=== PATIENT | female | born 1950 | race Caucasian/White ===

== ENCOUNTER → 2016-12-25 | Outpatient (CLI) | payer MEDICARE ==
--- NOTE | 2016-12-30 10:31 | MM ---
Reason for exam: screening (asymptomatic). History: Patient is postmenopausal. Physical Findings: A clinical breast exam by your physician is recommended on an annual basis and results should be correlated with mammographic findings. MG 3D Screening Mammo W/Cad Bilateral CC and MLO view(s) were taken. No prior studies available for comparison. There are scattered fibroglandular densities. Finding: There are typically benign diffuse calcifications in both breasts. ASSESSMENT: Benign, BI-RAD 2 RECOMMENDATION: Routine screening mammogram of both breasts in 1 year.
== END | disposition home or self-care (01) ==
LOC: RADMAMWWP 13:45
PROVIDERS: ATTEND Family Medicine
DX: Z12.31 Encounter for screening mammogram for malignant neoplasm of breast (principal)
CPT/HCPCS: 77063; G0202

== ENCOUNTER → 2017-02-10 | Outpatient (CLI) | payer MEDICARE ==
--- NOTE | 2017-02-10 16:17 | BD ---
EXAMINATION TYPE: MG DEXA axial skeleton. DATE OF EXAM: 02/10/2017 COMPARISON: 2005 CLINICAL HISTORY: 67-year-old female screening for osteoporosis Height: 5'1 Weight: 137 FRAX RISK QUESTIONS: Alcohol (3 or more units per day): no Family History (Parent hip fracture): yes Glucocorticoids (More than 3mos): no (Ex: prednisone, prednisolone, methylprednisolone, dexamethasone, and hydrocortisone). History of Fracture in Adulthood: yes Secondary Osteoporosis: 1. Type 1 Diabetes: no 2. Hyperthyroidism: no 3. Menopause before 45: no 4. Malnutrition: no 5. Chronic liver disease: no Rheumatoid Arthritis: no Current Tobacco Use: no RISK FACTORS HISTORY OF: Family History of Osteoporosis: Diet low in dairy products/other sources of calcium: Postmenopausal woman: MEDICATIONS: Additional Medications: Neurontin, Additional History: EXAM MEASUREMENTS: Bone mineral densitometry was performed using the Bit9 System. Bone mineral density as measured about the Lumbar spine is: ----- L1-L4(G/cm2): 0.924 T Score Values are as follows: ----- L2: -1.5 ----- L3: -2.0 ----- L4: -2.6 ----- L1-L4: -2.1 Bone mineral density has: Decreased -8.2% since study of: 12/16/2005 Bone mineral density about the R hip (g/cm2): 0.669 Bone mineral density about the L hip (g/cm2): 0.673 T Score values are as follows: -----R Neck: -2.7 -----L Neck: -2.6 -----R Total: -1.9 -----L Total: -1.8 Bone mineral density has: Decreased -16.5% since study of: 12/16/2005 IMPRESSION: Osteoporosis (T Score less than -2.5). There is increased fracture risk and therapy is usually indicated based on age. Re-Screen 1-2 years. NOTE: T-SCORE=SD OF THE YOUNG ADULT MEAN.
== END | disposition home or self-care (01) ==
LOC: RADBDWWP 13:18
PROVIDERS: ATTEND Family Medicine
DX: Z13.820 Encounter for screening for osteoporosis (principal); M81.0 Age-related osteoporosis without current pathological fracture
CPT/HCPCS: 77080

== ENCOUNTER 2019-01-13 20:35 | Inpatient (IN) | payer MEDICARE ==
[2019-01-13] MEDS ORDERED: ACETAMINOPHEN TAB 500 MG TAB PO STA (20:57)
[2019-01-13] MEDS: SODIUM CHLORIDE 0.9% 500 ML 500 ML IV SCH (21:24)
[2019-01-13 21:32] LABS: Anisocytosis Slight; Basophils # (A) 0.1 k/uL (0-0.2); Basophils % (A) 0 %; Eosinophils % (A) 0 %; HCT 22.8 % (34.0-46.0); Hypochromasia Marked; Lymphocytes # (A) 1.6 k/uL (1.0-4.8); Lymphocytes % (A) 9 %; MCH 26.4 pg (25.0-35.0); MCV 91.2 fL (80.0-100.0); Mean Platelet Volume 7.3; Monocytes # (A) 0.4 k/uL (0-1.0); Monocytes % (A) 2 %; Neutrophils # (A) 15.2 k/uL (1.3-7.7); Neutrophils % (A) 88 %; Platelet Count 331 k/uL (150-450); RDW 19.5 % (11.5-15.5); WBC 17.4 k/uL (3.8-10.6)
--- NOTE | 2019-01-13 21:34 | ED ---
General Adult HPI - General Chief complaint: Fever Stated complaint: Sepsis Time Seen by Provider: 01/13/19 20:57 Source: patient, EMS Mode of arrival: EMS Limitations: no limitations - History of Present Illness Initial comments: Carli is a 68-year-old female with past medical history of alcohol abuse who presents the emergency department today via EMS for evaluation of possible sepsis. Patient's family members called EMS because the patient has been less active than usual, she's been staying in bed, today they noted that she appeared to be pale, yellow in color. Patient reports she's feeling kind of crummy but denies any specific complaints. She states that she lives alone she cares for herself and that she's been at her normal activity level. EMS reports that they found the patient in bed, patient was noted to be febrile, tachycardic, had normal blood pressure, was noted to have malodorous wounds of the left lower extremity. Because of this she met sepsis protocol, IV access was obtained she was given a liter fluids in route to the hospital. EMS reports that upon their arrival the patient was sleepy but woke to voice, patient r eported she believes the year is 2001, she believed Kj was the president, she did not know why EMS was called or who called them. Patient's mental status was improving upon arrival to the emergency department. - Related Data Home Medications Medication Instructions Recorded Confirmed Citalopram Hydrobromide [CeleXA] 20 mg PO DAILY 01/09/16 01/09/16 Multivitamins, Thera [Multivitamin 1 tab PO DAILY 01/09/16 01/09/16 (formulary)] Previous Rx's Medication Instructions Recorded Folic Acid 1 mg PO DAILY #30 tablet 01/02/16 Thiamine [Vitamin B-1] 100 mg PO DAILY #30 tab 01/02/16 Furosemide [Lasix] 80 mg PO DAILY #1 tab 01/13/16 Gabapentin [Neurontin] 100 mg PO TID #30 capsule 01/13/16 LORazepam [Ativan] 0.5 mg PO Q8H PRN #20 tab 01/13/16 Lactulose [Cephulac] 20 gm PO BID ml 01/13/16 Potassium Chloride ER [K-Dur 20] 20 meq PO BID tab.er.prt 01/13/16 Rifaximin [Xifaxan] 200 mg PO TID tab 01/13/16 Spironolactone [Aldactone] 100 mg PO BID@0900,1600 tab 01/13/16 Allergies Allergy/AdvReac Type Severity Reaction Status Date / Time No Known Allergies Allergy Verified 01/09/16 17:01 Review of Systems ROS Statement: Those systems with pertinent positive or pertinent negative responses have been documented in the HPI. ROS Other: All systems not noted in ROS Statement are negative. Past Medical History Past Medical History: Renal Disease Additional Past Medical History / Comment(s): neuropathy, liver chirrosis History of Any Multi-Drug Resistant Organisms: None Reported Past Surgical History: No Surgical Hx Reported Additional Past Surgical History / Comment(s): egd/colonoscopy, skn grafting legs Past Anesthesia/Blood Transfusion Reactions: No Reported Reaction Past Psychological History: No Psychological Hx Reported Smoking Status: Former smoker Past Alcohol Use History: None Reported, Heavy Past Drug Use History: None Reported - Past Family History Father Family Medical History: Congestive Heart Failure (CHF), Myocardial Infarction (PR) Mother Family Medical History: Dementia Additional Family Medical History / Comment(s): heart problems General Exam - General Exam Comments Initial Comments: Physical Exam GENERAL: Pale, chronically ill-appearing elderly female HENT: Normocephalic, Atraumatic. EYES: PERRL, EOMI Conjunctival pallor PULMONARY: Unlabored respirations. No audible rales rhonchi or wheezing was noted. Tachypnea CARDIOVASCULAR: Tachycardia, regular ABDOMEN: Ascites, nontender SKIN: Pale Scabbed wounds in the left lower extremity with some. On discharge noted : All external genitalia NEUROLOGIC: Patient is alert and oriented x3. Moving all extremities spontaneously MUSCULOSKELETAL: Generalized muscular atrophy PSYCHIATRIC: Normal psychiatric evaluation. Limitations: no limitations Course Vital Signs 01/13/19 01/13/19 01/14/19 20:54 22:39 00:09 Temperature 101.3 F H 98.8 F Pulse Rate 118 H 96 87 Respiratory 20 20 16 Rate Blood Pressure 126/75 96/56 94/57 O2 Sat by Pulse 97 96 96 Oximetry EKG Findings - EKG Comments: EKG Findings:: EKG was obtained due to tachycardia, EKG obtained at 2148, rate is 101 rhythm is sinus tach, so the low voltage EKG, DE 152, curious 80, QTC prolonged at 536. No acute ST elevations or depressions no evidence of acute ischemia or infarction. Medical Decision Making - Medical Decision Making was seen and evaluated upon arrival to the emergency department This is an elderly female who appears very ill, somewhat jaundiced, is noted to be febrile, tachycardic Sepsis workup was initiated Labs and multiple significant abnormalities most notable hemoglobin of only 6.6 this is a significant drop from previous which was greater than 10 Rectal exam reveals dark melanotic stools Leukocytosis with neutrophilia, lactic acid also elevated at 2.4 Given the patient's history and signs of infection and left lower extremity broad-spectrum antibiotics were initiated Additional 1 L fluid was ordered Patient with no signs of end organ dysfunction no signs of severe sepsis or septic shock therefore 30 mL/kg bolus of fluids is not indicated, in addition patient will require blood transfusion therefore do not want to fluid overload the patient Results were discussed with the patient and family at bedside, family pulled me aside to express their concern that the patient is again drinking and she does have a history of alcohol abuse but has been sober for approximately 2 years Patient confirm that she would be DO NOT RESUSCITATE she is agreeable to IV fluids, blood, antibiotics and evaluation by GI specialist however she does not want any resuscitative measures or life support Admission orders were placed - Lab Data Result diagrams: 01/13/19 21:05 01/13/19 21:05 Lab Results 01/13/19 01/13/19 01/13/19 Range/Units 21:05 21:05 21:05 WBC 17.4 H (3.8-10.6) k/uL RBC 2.50 L (3.80-5.40) m/uL Hgb 6.6 L* (11.4-16.0) gm/dL Hct 22.8 L (34.0-46.0) % MCV 91.2 (80.0-100.0) fL MCH 26.4 (25.0-35.0) pg MCHC 29.0 L (31.0-37.0) g/dL RDW 19.5 H (11.5-15.5) % Plt Count 331 (150-450) k/uL Neutrophils % 88 % Lymphocytes % 9 % Monocytes % 2 % Eosinophils % 0 % Basophils % 0 % Neutrophils # 15.2 H (1.3-7.7) k/uL Lymphocytes # 1.6 (1.0-4.8) k/uL Monocytes # 0.4 (0-1.0) k/uL Eosinophils # 0.0 (0-0.7) k/uL Basophils # 0.1 (0-0.2) k/uL Hypochromasia Marked Anisocytosis Slight PT (9.0-12.0) sec INR (<1.2) APTT (22.0-30.0) sec Sodium 135 L (137-145) mmol/L Potassium 3.0 L (3.5-5.1) mmol/L Chloride 104 (98-107) mmol/L Carbon Dioxide 19 L (22-30) mmol/L Anion Gap 12 mmol/L BUN 9 (7-17) mg/dL Creatinine 0.54 (0.52-1.04) mg/dL Est GFR (CKD-EPI)AfAm >90 (>60 ml/min/1.73 sqM) Est GFR (CKD-EPI)NonAf >90 (>60 ml/min/1.73 sqM) Glucose 77 (74-99) mg/dL Plasma Lactic Acid Mamadou (0.7-2.0) mmol/L Calcium 7.3 L (8.4-10.2) mg/dL Total Bilirubin 3.2 H (0.2-1.3) mg/dL AST 77 H (14-36) U/L ALT 28 (9-52) U/L Alkaline Phosphatase 163 H (38-126) U/L Creatine Kinase 42 (30-135) U/L Troponin I (0.000-0.034) ng/mL Total Protein 5.9 L (6.3-8.2) g/dL Albumin 2.3 L (3.5-5.0) g/dL Blood Type B Positive Blood Type Recheck No Antibody Screen NEGATIVE Crossmatch See Detail Spec Expiration Date 01/16/2019 - 230401/13/19 01/13/19 01/13/19 Range/Units 21:05 21:05 21:05 WBC (3.8-10.6) k/uL RBC (3.80-5.40) m/uL Hgb (11.4-16.0) gm/dL Hct (34.0-46.0) % MCV (80.0-100.0) fL MCH (25.0-35.0) pg MCHC (31.0-37.0) g/dL RDW (11.5-15.5) % Plt Count (150-450) k/uL Neutrophils % % Lymphocytes % % Monocytes % % Eosinophils % % Basophils % % Neutrophils # (1.3-7.7) k/uL Lymphocytes # (1.0-4.8) k/uL Monocytes # (0-1.0) k/uL Eosinophils # (0-0.7) k/uL Basophils # (0-0.2) k/uL Hypochromasia Anisocytosis PT 12.9 H (9.0-12.0) sec INR 1.2 H (<1.2) APTT 28.3 (22.0-30.0) sec Sodium (137-145) mmol/L Potassium (3.5-5.1) mmol/L Chloride (98-107) mmol/L Carbon Dioxide (22-30) mmol/L Anion Gap mmol/L BUN (7-17) mg/dL Creatinine (0.52-1.04) mg/dL Est GFR (CKD-EPI)AfAm (>60 ml/min/1.73 sqM) Est GFR (CKD-EPI)NonAf (>60 ml/min/1.73 sqM) Glucose (74-99) mg/dL Plasma Lactic Acid Mamadou 2.4 H* (0.7-2.0) mmol/L Calcium (8.4-10.2) mg/dL Total Bilirubin (0.2-1.3) mg/dL AST (14-36) U/L ALT (9-52) U/L Alkaline Phosphatase (38-126) U/L Creatine Kinase (30-135) U/L Troponin I <0.012 (0.000-0.034) ng/mL Total Protein (6.3-8.2) g/dL Albumin (3.5-5.0) g/dL Blood Type Blood Type Recheck Antibody Screen Crossmatch Spec Expiration Date Critical Care Time Critical Care Time: Yes Total Critical Care Time: 35 Disposition Clinical Impression: GI bleeding, Alcohol abuse, Anemia, Sepsis, Cellulitis, Hypokalemia Disposition: ADMITTED IP TO [facility] Condition: Serious
[2019-01-13 21:35] LABS: HGB 6.6 gm/dL (11.4-16.0)
[2019-01-13 21:36] LABS: INR 1.2 (<1.2); Partial Thromboplastin Time 28.3 sec (22.0-30.0); Prothrombin Time 12.9 sec (9.0-12.0)
[2019-01-13 21:37] LABS: ALT 28 U/L (9-52); AST 77 U/L (14-36); African American GFR (CKD) >90 (>60 ml/min/1.73 sqM); Albumin 2.3 g/dL (3.5-5.0); Alkaline Phosphatase 163 U/L (38-126); Anion Gap 12 mmol/L; Blood Urea Nitrogen 9 mg/dL (7-17); Calcium 7.3 mg/dL (8.4-10.2); Carbon Dioxide 19 mmol/L (22-30); Chloride 104 mmol/L (98-107); Creatine Kinase 42 U/L (30-135); Glucose 77 mg/dL (74-99); Sodium 135 mmol/L (137-145); Total Bilirubin 3.2 mg/dL (0.2-1.3); Total Protein 5.9 g/dL (6.3-8.2)
--- NOTE | 2019-01-13 22:04 | XR ---
History: ITS.REASON XR Reason: Fever Exam: XR CXR 2 VIEWS Comparison: 01/09/2016 FINDINGS: Bilateral diffuse prominence of the perihilar pulmonary markings may represent degree of vascular congestion, edema. Triangular opacity consistent with partial middle lobe collapse, atelectasis. Small right pleural effusion. The cardiac and mediastinal contours appear within limits. IMPRESSION: Bilateral diffuse prominence of the perihilar pulmonary markings may represent degree of vascular congestion, edema. Triangular opacity consistent with partial middle lobe collapse, atelectasis. Small right pleural effusion.
[2019-01-13] MEDS ORDERED: VANCOMYCIN IV PER PHARMACY 1 EACH MISC MISCELLANE PRN (23:04)
[2019-01-13] MEDS ORDERED: metroNIDAZOLE-NS PMX 500 MG in SALINE 1 100ML.BAG IVPB STA (23:04)
[2019-01-13] MEDS ORDERED: NALOXONE 0.4 MG/ML 1 ML VIAL IV PRN (23:13)
[2019-01-13] MEDS ORDERED: CEFEPIME 2 GM in SODIUM CHLORIDE 0.9% 100 ML IVPB ONE (23:15)
[2019-01-13] MEDS ORDERED: IBUPROFEN 400 MG TAB PO PRN (23:20)
[2019-01-13] MEDS ORDERED: PANTOPRAZOLE 40 MG/10 ML VIAL IVP ONE (23:41)
[2019-01-13] MEDS ORDERED: cefTRIAXone IN SWFI 1,000 MG/10 ML SYRINGE IVP STA (23:42)
[2019-01-13] MEDS ORDERED: Potassium Replacement Protocol 1 EACH MISC MISCELLANE PRN (23:54)
[2019-01-14] MEDS ORDERED: VANCOMYCIN 1,250 MG in SODIUM CHLORIDE 0.9% 250 ML IVPB ONE ×2
[2019-01-14] MEDS ORDERED: metroNIDAZOLE-NS PMX 500 MG in SALINE 1 100ML.BAG IVPB ONE (02:00)
[2019-01-14] MEDS: POTASSIUM CHLORIDE 10 MEQ in WATER FOR INJECTION 1 100ML.BAG IVPB SCH ×4 (02:20→08:03)
[2019-01-14] MEDS ORDERED: FUROSEMIDE 10 MG/ML 2 ML VIAL IV ONE (09:32)
[2019-01-14] MEDS: PANTOPRAZOLE 40 MG/10 ML VIAL IVP SCH (10:11)
--- NOTE | 2019-01-14 12:22 | P.HPIM ---
History of Present Illness 68-year-old female with known history of alcoholic cirrhosis quit drinking a while ago did have a drink about a week ago was found to be weak in bed unresponsive because of which are patient was brought by the neighbors and family members to the hospital. Patient is found to be severely anemic with hemoglobin of 6.6 patient denied any history of esophageal varices or hemorrhoids in the past. Patient does have lactic is doses may be related to liver failure but patient does have left the leg ulcers patient does have bilateral venous stasis dermatosis and the does have foul-smelling discharge with some redness around it patient was started on the vancomycin patient doesn't have an denied any abdominal pain. Any fever. Patient denied any obvious hematemesis, hematochezia, melena. Patient is bit hypotensive which is expected for renal failure patient does have some asterixis because of which I'm obtaining ammonia level patient is on rifaximin and lactulose for hepatic transplant. Which will be continued. Review of Systems REVIEW OF SYSTEMS: CONSTITUTIONAL: No fever, no malaise, no fatigue. HEENT: No recent visual problems or hearing problems. Denied any sore throat. CARDIOVASCULAR: No chest pain, orthopnea, PND, no palpitations, no syncope. PULMONARY: No shortness of breath, no cough, no hemoptysis. GASTROINTESTINAL: No diarrhea, no nausea, no vomiting, no abdominal pain. NEUROLOGICAL: No headaches, no weakness, no numbness. HEMATOLOGICAL: Denies any bleeding or petechiae. GENITOURINARY: Denies any burning micturition, frequency, or urgency. MUSCULOSKELETAL/RHEUMATOLOGICAL: Denies any joint pain, swelling, or any muscle pain. ENDOCRINE: Denies any polyuria or polydipsia. The rest of the 14-point review of systems is negative. Past Medical History Past Medical History: Renal Disease Additional Past Medical History / Comment(s): neuropathy, liver chirrosis History of Any Multi-Drug Resistant Organisms: None Reported Past Surgical History: No Surgical Hx Reported Additional Past Surgical History / Comment(s): egd/colonoscopy, skn grafting legs Past Anesthesia/Blood Transfusion Reactions: No Reported Reaction Smoking Status: Former smoker - Past Family History Father Family Medical History: Congestive Heart Failure (CHF), Myocardial Infarction (PR) Mother Family Medical History: Dementia Additional Family Medical History / Comment(s): heart problems Medications and Allergies Home Medications Medication Instructions Recorded Confirmed Type Folic Acid 1 mg PO DAILY #30 tablet 01/02/16 01/14/19 Rx Citalopram Hydrobromide [CeleXA] 20 mg PO DAILY 01/09/16 01/14/19 History Gabapentin [Neurontin] 300 mg PO TID 01/14/19 01/14/19 History Raloxifene [Evista] 60 mg PO DAILY 01/14/19 01/14/19 History Spironolactone 100 mg PO BID 01/14/19 01/14/19 History Allergies Allergy/AdvReac Type Severity Reaction Status Date / Time No Known Allergies Allergy Verified 01/09/16 17:01 Physical Exam Vitals: Vital Signs Temp Pulse Pulse Resp BP BP Pulse Ox 01/14/19 10:48 98 F 78 16 92/62 97 01/14/19 10:18 97.8 F 74 6 L 100/55 98 01/14/19 10:08 97.8 F 80 16 101/59 98 01/14/19 05:30 98.2 F 77 16 88/55 96 01/14/19 03:26 97.8 F 16 90/53 95 01/14/19 02:13 97.3 F L 76 16 89/54 97 01/14/19 01:45 97.8 F 86 16 103/57 01/14/19 01:43 97.8 F 84 16 98/54 98 01/14/19 01:33 97.4 F L 83 16 90/54 100 01/14/19 00:45 97.9 F 81 19 101/68 97 01/14/19 00:09 87 16 94/57 96 01/14/19 00:00 81 16 01/13/19 22:39 98.8 F 96 20 96/56 96 01/13/19 20:54 101.3 F H 118 H 20 126/75 97 Intake and Output 01/13/19 01/14/19 01/14/19 22:59 06:59 14:59 Intake Total 310 400 Balance 310 400 Intake: Intake, IV Titration 400 Amount Potassium Chloride 10 meq 300 In Water For Injection 1 100ml.bag @ 100 mls/hr IVPB Q1HR CALEB Rx#: [id number] metroNIDAZOLE-NS PMX 500 100 mg In Saline 1 100ml.bag @ 100 mls/hr IVPB ONCE STA Rx#:[id number] Blood Product 310 0 Rc As-1 Unit 0 [id number] Rc As-3 Unit 310 [id number] Other: Weight 60 kg 53.5 kg PHYSICAL EXAMINATION: GENERAL: The patient is alert and oriented x3, not in any acute distress. Thin built HEENT: Pupils are round and equally reacting to light. EOMI. No scleral icterus. No conjunctival pallor. Normocephalic, atraumatic. No pharyngeal erythema. No thyromegaly. CARDIOVASCULAR: S1 and S2 present. No murmurs, rubs, or gallops. PULMONARY: Chest is clear to auscultation, no wheezing or crackles. ABDOMEN: Soft, nontender, distended with ascites MUSCULOSKELETAL: No joint swelling or deformity. EXTREMITIES: No cyanosis, clubbing, or pedal edema. NEUROLOGICAL: Gross neurological examination did not reveal any focal deficits. SKIN: Left leg stage II ulcerations with foul-smelling discharge and some redness Results CBC & Chem 7: 01/13/19 21:05 01/13/19 21:05 Labs: Abnormal Lab Results - Last 24 Hours (Table) 01/13/19 01/13/19 01/13/19 Range/Units 21:05 21:05 21:05 WBC 17.4 H (3.8-10.6) k/uL RBC 2.50 L (3.80-5.40) m/uL Hgb 6.6 L* (11.4-16.0) gm/dL Hct 22.8 L (34.0-46.0) % MCHC 29.0 L (31.0-37.0) g/dL RDW 19.5 H (11.5-15.5) % Neutrophils # 15.2 H (1.3-7.7) k/uL PT (9.0-12.0) sec INR (<1.2) Sodium 135 L (137-145) mmol/L Potassium 3.0 L (3.5-5.1) mmol/L Carbon Dioxide 19 L (22-30) mmol/L Plasma Lactic Acid Mamadou (0.7-2.0) mmol/L Calcium 7.3 L (8.4-10.2) mg/dL Total Bilirubin 3.2 H (0.2-1.3) mg/dL AST 77 H (14-36) U/L Alkaline Phosphatase 163 H (38-126) U/L Total Protein 5.9 L (6.3-8.2) g/dL Albumin 2.3 L (3.5-5.0) g/dL Stool Occult Blood (Negative) Crossmatch See Detail 01/13/19 01/13/19 01/14/19 Range/Units 21:05 21:05 00:10 WBC (3.8-10.6) k/uL RBC (3.80-5.40) m/uL Hgb (11.4-16.0) gm/dL Hct (34.0-46.0) % MCHC (31.0-37.0) g/dL RDW (11.5-15.5) % Neutrophils # (1.3-7.7) k/uL PT 12.9 H (9.0-12.0) sec INR 1.2 H (<1.2) Sodium (137-145) mmol/L Potassium (3.5-5.1) mmol/L Carbon Dioxide (22-30) mmol/L Plasma Lactic Acid Mamadou 2.4 H* (0.7-2.0) mmol/L Calcium (8.4-10.2) mg/dL Total Bilirubin (0.2-1.3) mg/dL AST (14-36) U/L Alkaline Phosphatase (38-126) U/L Total Protein (6.3-8.2) g/dL Albumin (3.5-5.0) g/dL Stool Occult Blood Positive H (Negative) Crossmatch Thrombosis Risk Factor Assmnt - Choose All That Apply Any of the Below Risk Factors Present?: Yes Each Factor Represents 1 point: Sepsis (< 1month) Other Risk Factors: Yes Each Risk Factor Represents 2 Points: Age 61-74 years, Patient confined to bed Other congenital or acquired thrombophilia - If yes, enter type in comment: No Thrombosis Risk Factor Assessment Total Risk Factor Score: 5 Thrombosis Risk Factor Assessment Level: High Risk Assessment and Plan Plan: -Severe anemia no evidence of acute GI bleed at this time gastric body was consulted there is a possibility of first L[place]atos bleed along with the chronic anemia from liver disease which is contributing to her low hemoglobin. -Alcoholic cirrhosis: Supportive care. Patient does not appear to respond is back to peritonitis, patient doesn't have any tense ascites will not require any diagnostic or therapeutic paracentesis. Continue with lactulose and rifaximin for hepatic encephalopathy although I'm holding off on the diuretic therapy as she is receiving IV fluids for lactic is doses and low blood pressure -Lactic acidosis secondary to liver failure rather than sepsis possible intravascular volume depletion which is intermittent lactic acidosis -Left leg cellulitis with ulcerations venous stasis ulcers continue vancomycin infectious disease was consulted local wound care -Peripheral neuropathy
[2019-01-14] MEDS: VANCOMYCIN 1,000 MG in SODIUM CHLORIDE 0.9% 250 ML IVPB SCH ×3 (12:33→23:57)
[2019-01-14 14:56] LABS: Appearance,Urine Turbid (Clear); Bacteria,Urine Many /hpf; Bilirubin,Urine 1+ (Negative); Blood,Urine Small (Negative); Color,Urine Dark Brown; Glucose,Urine (UA) Negative (Negative); Ketones,Urine Trace (Negative); Leukocyte Esterase,Urine Trace (Negative); Mucus,Urine Many /hpf; Nitrite,Urine Negative (Negative); PH, Urine 5.5 (5.0-8.0); Protein,Urine 1+ (Negative); RBC,Urine 10 /hpf (0-5); Specific Gravity,Urine 1.028 (1.001-1.035); Squamous Epithelial Cell,Urine 4 /hpf (0-4); Urobilinogen,Urine >12.0 mg/dL (<2.0)
[2019-01-14] MEDS: GABAPENTIN 100 MG CAP PO SCH ×2 (15:05→21:14)
[2019-01-14] MEDS: RIFAXIMIN 200 MG TAB PO SCH ×2 (15:05→21:15)
[2019-01-14] MEDS: POTASSIUM CHLORIDE ER 20 MEQ TAB.ER PO SCH ×2 (17:34→18:23)
[2019-01-14 21:01] LABS: Anisocytosis Slight; Hypochromasia Marked; MCH 28.8 pg (25.0-35.0); MCV 90.1 fL (80.0-100.0); Mean Platelet Volume 7.8; Platelet Count 249 k/uL (150-450); Poikilocytosis Moderate; RBC 3.55 m/uL (3.80-5.40); RDW 18.2 % (11.5-15.5); WBC 8.7 k/uL (3.8-10.6)
[2019-01-14 21:07] LABS: HGB 10.2 gm/dL (11.4-16.0)
[2019-01-14] MEDS: LACTULOSE 20 GM/30 ML CUP PO SCH (21:16)
--- NOTE | 2019-01-14 23:27 | P.CONS ---
History of Present Illness - Reason for Consult Consult date: 01/14/19 Cirrhosis Requesting physician: Gracy Card - Chief Complaint Altered mental status - History of Present Illness 68-year-old female with a medical history significant for alcoholic cirrhosis who presented to the hospital due to weakness and altered mental status. The patient had been weak and was found in bed unresponsive and was taken to the hospital for further evaluation. Patient has a long-standing history decompensated alcoholic cirrhosis. She reports being abstinent from alcohol for the past few months. Previously she has been treated for encephalopathy and GI bleeding. She is also on home diuretic therapy. The patient had been less active and with decreased oral intake prior to presentation. She also been noted to be jaundiced. She denies any prior need for paracentesis. She denies any prior colonoscopy and states that she did have testing of her stool in the outpatient setting approximately 4 months ago which was negative. She was found to be anemic on presentation with a hemoglobin of 6.6 which subsequently transferred to 10.2 after transfusion. She is denying any signs or symptoms of GI bleeding with no hematochezia or melena reported. Other laboratory evaluation was significant for INR of 1.2, ammonia 17, total bilirubin 3.2, alkaline phosphatase 163, AST 77 and ALTs 28. Review of Systems REVIEW OF SYSTEMS: CONSTITUTIONAL: Denies any fevers, chills, but was fatigued and lethargic prior to presentation. CARDIOVASCULAR: Denies any chest pain, palpitations high or low blood pressures RESPIRATORY: Denies any shortness of breath, hemoptysis or cough. GENITOURINARY: No dysuria or hematuria. MUSCULOSKELETAL: No weakness reported. SKIN: Denies any new rashes or lesions, but reported jaundice and pallor. PSYCHIATRIC: Denies any depression or anxiety. NEUROLOGY: Denies headache, denies any new focal deficits. EARS/NOSE/THROAT: No recent hearing change, congestion, nasal discharge or sore throat. EYES: No pain in eyes, discharge or change in vision. GASTROINTESTINAL: As per HPI. Past Medical History Past Medical History: Renal Disease Additional Past Medical History / Comment(s): neuropathy, liver chirrosis History of Any Multi-Drug Resistant Organisms: None Reported Past Surgical History: No Surgical Hx Reported Additional Past Surgical History / Comment(s): egd/colonoscopy, skn grafting legs Past Anesthesia/Blood Transfusion Reactions: No Reported Reaction Smoking Status: Former smoker - Past Family History Father Family Medical History: Congestive Heart Failure (CHF), Myocardial Infarction ( [place]) Mother Family Medical History: Dementia Additional Family Medical History / Comment(s): heart problems Medications and Allergies Home Medications Medication Instructions Recorded Confirmed Type Folic Acid 1 mg PO DAILY #30 tablet 01/02/16 01/14/19 Rx Citalopram Hydrobromide [CeleXA] 20 mg PO DAILY 01/09/16 01/14/19 History Gabapentin [Neurontin] 300 mg PO TID 01/14/19 01/14/19 History Raloxifene [Evista] 60 mg PO DAILY 01/14/19 01/14/19 History Spironolactone 100 mg PO BID 01/14/19 01/14/19 History Allergies Allergy/AdvReac Type Severity Reaction Status Date / Time No Known Allergies Allergy Verified 01/09/16 17:01 Physical Exam Vitals: Vital Signs Temp Pulse Pulse Resp BP BP Pulse Ox 01/14/19 20:10 97.9 F 86 16 104/62 100 01/14/19 15:58 97.4 F L 87 16 107/70 97 01/14/19 12:42 98 F 01/14/19 12:30 97.9 F 83 16 106/68 96 01/14/19 10:48 98 F 78 16 92/62 97 01/14/19 10:18 97.8 F 74 6 L 100/55 98 01/14/19 10:08 97.8 F 80 16 101/59 98 01/14/19 08:00 97.8 F 82 16 96/56 97 01/14/19 05:30 98.2 F 77 16 88/55 96 01/14/19 03:26 97.8 F 16 90/53 95 01/14/19 02:13 97.3 F L 76 16 89/54 97 01/14/19 01:45 97.8 F 86 16 103/57 01/14/19 01:43 97.8 F 84 16 98/54 98 01/14/19 01:33 97.4 F L 83 16 90/54 100 01/14/19 00:45 97.9 F 81 19 101/68 97 01/14/19 00:09 87 16 94/57 96 01/14/19 00:00 81 16 Intake and Output 01/14/19 01/14/19 01/15/19 14:59 22:59 06:59 Intake Total 710 900 Output Total 1400 Balance 710 -500 Intake: Intake, IV Titration 400 350 Amount Potassium Chloride 10 meq 300 100 In Water For Injection 1 100ml.bag @ 100 mls/hr IVPB Q1HR [facility] Rx#: [id number] Vancomycin 1,000 mg In 250 Sodium Chloride 0.9% 250 ml @ 125 mls/hr IVPB Q12H [facility] Rx#:[id number] metroNIDAZOLE-NS PMX 500 100 mg In Saline 1 100ml.bag @ 100 mls/hr IVPB ONCE [facility] Rx#:[id number] Oral 240 Blood Product 310 310 Rc As-1 Unit 310 [id number] Output: Urine 1400 Other: Voiding Method Bedpan Weight 53.5 kg On physical examination, patient appears comfortable in no apparent distress. HEAD: Normocephalic, atraumatic. EYES: Scleral icterus. No conjunctival injection. MOUTH: No lesions, tongue midline. NECK: Trachea midline, no gross abnormalities. CHEST: Decreased air entry in all lung chávez. HEART: S1-S2 appreciated. ABDOMEN: Soft, mildly distended. Bowel sounds are positive. No organomegaly. No guarding or rigidity. EXTREMITIES: No pedal edema, bilateral wounds/abrasions on the patient's shins. SKIN: Bilateral wounds/abrasions of the patient's shins, jaundice. NEUROLOGIC: Alert and oriented x3, no asterixis noted. No focal deficits. Results CBC & Chem 7: 01/14/19 19:50 01/14/19 15:00 Labs: Abnormal Lab Results - Last 24 Hours (Table) 01/13/19 01/14/19 01/14/19 Range/Units 21:05 00:10 14:20 RBC (3.80-5.40) m/uL Hgb (11.4-16.0) gm/dL Hct (34.0-46.0) % RDW (11.5-15.5) % Potassium (3.5-5.1) mmol/L Urine Appearance Turbid H (Clear) Urine Protein 1+ H (Negative) Urine Ketones Trace H (Negative) Urine Blood Small H (Negative) Urine Bilirubin 1+ H (Negative) Ur Leukocyte Esterase Trace H (Negative) Urine RBC 10 H (0-5) /hpf Urine Bacteria Many H (None) /hpf Urine Mucus Many H (None) /hpf Stool Occult Blood Positive H (Negative) Crossmatch See Detail 01/14/19 01/14/19 Range/Units 15:00 19:50 RBC 3.55 L (3.80-5.40) m/uL Hgb 10.2 L D (11.4-16.0) gm/dL Hct 32.0 L (34.0-46.0) % RDW 18.2 H (11.5-15.5) % Potassium 3.3 L (3.5-5.1) mmol/L Urine Appearance (Clear) Urine Protein (Negative) Urine Ketones (Negative) Urine Blood (Negative) Urine Bilirubin (Negative) Ur Leukocyte Esterase (Negative) Urine RBC (0-5) /hpf Urine Bacteria (None) /hpf Urine Mucus (None) /hpf Stool Occult Blood (Negative) Crossmatch Microbiology - Last 24 Hours (Table) 01/14/19 14:20 Urine Culture - Preliminary Urine,Clean Catch 01/14/19 10:24 Anaerobic Culture - Preliminary Leg - Left 01/14/19 10:24 Wound Culture - Preliminary Leg - Left Chest x-ray: report reviewed Assessment and Plan (1) Cirrhosis Narrative/Plan: 68-year-old female with decompensated alcoholic cirrhosis with prior episodes of encephalopathy as well as fluid overload treated with Aldactone in the outpatient setting. She presented to the hospital with lethargy and weakness. Unclear etiology with the patient currently receiving antibiotic therapy for treatment of wounds on her legs. There may be a component of encephalopathy with the patient having a prior history of hepatic encephalopathy, although amm onia level 17 on presentation and no asterixis on physical exam. Current Visit: No Status: Acute Code(s): K74.60 - UNSPECIFIED CIRRHOSIS OF LIVER SNOMED Code(s): 83880675 (2) Anemia Narrative/Plan: Normocytic anemia with no reports of GI bleeding. Maybe secondary to nutritional deficiencies as well as anemia of chronic disease and mild toxic effect of alcohol. We'll continue to monitor for signs or symptoms of GI bleeding Current Visit: Yes Status: Acute Code(s): D64.9 - ANEMIA, UNSPECIFIED SNOMED Code(s): 654541014 (3) ETOH abuse Current Visit: Yes Status: Acute Code(s): F10.10 - ALCOHOL ABUSE, UNCOMPLICATED SNOMED Code(s): 85341610 (4) Hyperbilirubinemia Current Visit: No Status: Acute Code(s): E80.6 - OTHER DISORDERS OF BILIRUBIN METABOLISM SNOMED Code(s): 86003466 (5) Jaundice due to hepatitis Current Visit: No Status: Acute Code(s): K75.9 - INFLAMMATORY LIVER DISEASE, UNSPECIFIED SNOMED Code(s): 34534440 Plan: Supportive care Okay for 2 g sodium restricted diet Continue lactulose and Xifaxan Ultrasound paracentesis ordered, fluid studies ordered Alcohol abstinence Will reinitiate Aldactone 100 mg daily Continue other medical management per primary team Thank you for allowing us to participate In the care of this patient we will continue to follow
[2019-01-15 07:19] LABS: African American GFR (CKD) >90 (>60 ml/min/1.73 sqM); Anion Gap 9 mmol/L; Blood Urea Nitrogen 9 mg/dL (7-17); Calcium 7.3 mg/dL (8.4-10.2); Carbon Dioxide 18 mmol/L (22-30); Chloride 107 mmol/L (98-107); Glucose 66 mg/dL (74-99); Potassium 3.7 mmol/L (3.5-5.1); Sodium 134 mmol/L (137-145)
[2019-01-15 07:34] LABS: Anisocytosis Slight; HCT 31.2 % (34.0-46.0); Hypochromasia Moderate; MCH 28.4 pg (25.0-35.0); MCHC 32.2 g/dL (31.0-37.0); MCV 88.2 fL (80.0-100.0); Mean Platelet Volume 8.6; Poikilocytosis Moderate; RBC 3.53 m/uL (3.80-5.40); RDW 18.2 % (11.5-15.5); WBC 7.6 k/uL (3.8-10.6)
[2019-01-15 08:33] LABS: Platelet Count 110 k/uL (150-450)
[2019-01-15] MEDS: LACTULOSE 20 GM/30 ML CUP PO SCH ×2 (08:55→21:14)
[2019-01-15] MEDS: PANTOPRAZOLE 40 MG/10 ML VIAL IVP SCH (08:56)
[2019-01-15] MEDS: MULTIVITAMINS, THERA 1 EACH TAB PO SCH (08:56)
[2019-01-15] MEDS: THIAMINE 100 MG TAB PO SCH (08:56)
[2019-01-15] MEDS: FOLIC ACID 1 MG TAB PO SCH (08:57)
[2019-01-15] MEDS: RIFAXIMIN 200 MG TAB PO SCH ×3 (08:57→21:15)
[2019-01-15] MEDS: GABAPENTIN 100 MG CAP PO SCH ×3 (08:57→21:15)
[2019-01-15] MEDS: SPIRONOLACTONE 25 MG TAB PO SCH (08:57)
[2019-01-15] MEDS: VANCOMYCIN 1,000 MG in SODIUM CHLORIDE 0.9% 250 ML IVPB SCH ×2 (12:41→23:45)
--- NOTE | 2019-01-15 13:39 | US ---
EXAMINATION TYPE: US abdomen limited DATE OF EXAM: 01/15/2019 COMPARISON: EXAMINATION TYPE: US abdomen limited DATE OF EXAM: 01/15/2019 COMPARISON: NONE CLINICAL HISTORY: evaluate for ascites . retention of fluid Moderate amount of fluid seen with all 4 quadrants IMPRESSION: 1. Ascites present all 4 quadrant.
--- NOTE | 2019-01-15 15:39 | US ---
EXAMINATION TYPE: US paracentesis abd w/image DATE OF EXAM: 01/15/2019 COMPARISON: NONE HISTORY: Ascites. PROCEDURE: Maximal barrier technique was utilized. The skin overlying a suitable pocket of fluid was localized with ultrasound and the overlying skin was prepped and draped. Ultrasound was utilized with sterile technique. Lidocaine was used for local anesthesia and a skin fina made with a scalpel. Catheter was advanced under direct ultrasound guidance into a suitable pocket of fluid and approximately 3.3 liter s of serous fluid were removed. Catheter was withdrawn and hemostasis achieved. There is no immedia te complication; the patient is discharged in stable condition. IMPRESSION: STATUS POST ULTRASOUND GUIDED PARACENTESIS FOR PALLIATION OF ASCITES. THIS PROCEDURE WA S PERFORMED BY THE UNDERSIGNED. Specimen obtained for laboratory analysis.
[2019-01-15 16:06] LABS: Appearance,BF Clear; Color,BF Yellow; Nucleated Cells, Body Fluid 17 /uL; RBC, Body Fluid 3 /uL
--- NOTE | 2019-01-15 16:08 | P.PN ---
Subjective Progress Note Date: 01/15/19 Principal diagnosis: Cirrhosis Patient is seen lying in bed reporting that she is doing well. She is tolerating her diet. Does report a nonbloody bowel movement today. Objective - Vital Signs Vital signs: Vital Signs Temp 97.9 F 01/15/19 14:00 Pulse 99 01/15/19 15:15 Resp 20 01/15/19 15:15 BP 126/67 01/15/19 15:15 Pulse Ox 96 01/15/19 15:15 Intake & Output 01/14/19 01/15/19 01/15/19 18:59 06:59 18:59 Intake Total 1610 370 200 Output Total 1400 Balance 210 370 200 Weight 53.5 kg 53.5 kg 53.5 kg Intake: Intake, IV Titration 750 250 Amount Potassium Chloride 10 meq 400 In Water For Injection 1 100ml.bag @ 100 mls/hr IVPB Q1HR [facility] Rx#: [id number] Vancomycin 1,000 mg In 250 250 Sodium Chloride 0.9% 250 ml @ 125 mls/hr IVPB Q12H [facility] Rx#:[id number] metroNIDAZOLE-NS PMX 500 100 mg In Saline 1 100ml.bag @ 100 mls/hr IVPB ONCE [facility] Rx#:[id number] Oral 240 120 200 Blood Product 620 Rc As-1 Unit 310 [id number] Output: Urine 1400 Other: Voiding Method Bedpan Bedpan # Voids 1 - Exam On physical examination, patient appears comfortable in no apparent distress. HEAD: Normocephalic, atraumatic. EYES: Scleral icterus. No conjunctival injection. MOUTH: No lesions, tongue midline. NECK: Trachea midline, no gross abnormalities. CHEST: Decreased air entry in all lung chávez. HEART: S1-S2 appreciated. ABDOMEN: Soft, mildly distended. Bowel sounds are positive. No organomegaly. No guarding or rigidity. EXTREMITIES: No pedal edema, bilateral wounds/abrasions on the patient's shins. SKIN: Bilateral wounds/abrasions of the patient's shins, jaundice. NEUROLOGIC: Alert and oriented x3, no asterixis noted. No focal deficits. - Labs CBC & Chem 7: 01/15/19 06:51 01/15/19 06:51 Labs: Abnormal Lab Results - Last 24 Hours (Table) 01/14/19 01/15/19 01/15/19 Range/Units 19:50 06:51 06:51 RBC 3.55 L 3.53 L (3.80-5.40) m/uL Hgb 10.2 L D 10.0 L (11.4-16.0) gm/dL Hct 32.0 L 31.2 L (34.0-46.0) % RDW 18.2 H 18.2 H (11.5-15.5) % Plt Count 110 L D (150-450) k/uL Sodium 134 L (137-145) mmol/L Carbon Dioxide 18 L (22-30) mmol/L Creatinine 0.51 L (0.52-1.04) mg/dL Glucose 66 L (74-99) mg/dL Calcium 7.3 L (8.4-10.2) mg/dL Microbiology - Last 24 Hours (Table) 01/14/19 10:24 Gram Stain - Preliminary Leg - Left Wound Culture - Preliminary 01/13/19 21:05 Blood Culture - Preliminary Blood No Growth after 24 hours 01/14/19 14:20 Urine Culture - Preliminary Urine,Clean Catch 01/14/19 10:24 Anaerobic Culture - Preliminary Leg - Left Assessment and Plan (1) Cirrhosis Narrative/Plan: 68-year-old female with decompensated alcoholic cirrhosis with prior episodes of encephalopathy as well as fluid overload treated with Aldactone in the outpatient setting. She presented to the hospital with lethargy and weakness. Unclear etiology with the patient currently receiving antibiotic therapy for treatment of wounds on her legs. There may be a component of encephalopathy with the patient having a prior history of hepatic encephalopathy, although ammonia level 17 on presentation and no asterixis on physical exam. She is status post paracentesis with 3 L of ascites removed. Fluid studies pending. Current Visit: No Status: Acute Code(s): K74.60 - UNSPECIFIED CIRRHOSIS OF LIVER SNOMED Code(s): 02272116 (2) Anemia Narrative/Plan: Normocytic anemia with no reports of GI bleeding. Maybe secondary to nutritional deficiencies as well as anemia of chronic disease and mild toxic effect of alcohol. We'll continue to monitor for signs or symptoms of GI bleeding Current Visit: Yes Status: Acute Code(s): D64.9 - ANEMIA, UNSPECIFIED SNOMED Code(s): 889440692 (3) ETOH abuse Current Visit: Yes Status: Acute Code(s): F10.10 - ALCOHOL ABUSE, UNCOMPLICATED SNOMED Code(s): 61273487 (4) Hyperbilirubinemia Current Visit: No Status: Acute Code(s): E80.6 - OTHER DISORDERS OF BILIRUBIN METABOLISM SNOMED Code(s): 74896807 (5) Jaundice due to hepatitis Current Visit: No Status: Acute Code(s): K75.9 - INFLAMMATORY LIVER DISEASE, UNSPECIFIED SNOMED Code(s): 51977762 Plan: Supportive care Okay for 2 g sodium restricted diet Continue lactulose and Xifaxan Ultrasound paracentesis with 3 L of ascites removed, fluid studies pending Alcohol abstinence Continue Aldactone 100 mg daily Continue other medical management per primary team Thank you for allowing us to participate In the care of this patient the GI service will stand by, please call with any questions or concerns
--- NOTE | 2019-01-15 16:48 | P.CONS ---
History of Present Illness - Reason for Consult Consult date: 01/14/19 left lower extremity wounds Requesting physician: Gracy Card - Chief Complaint left leg wound - History of Present Illness Patient is 68-year-old female with a past medical history significant for alcohol abuse brought into the ER with the patient's family complaining of patient not her usual self, has been lethargic and sleeping mostly, patient on arrival to the ER did have a fever of 10 1F, the patient did have elevated white count of 17.4 and a positive UA she did receive 1 dose of Rocephin in the ER which was subsequently not continued, the patient also noticed to have left leg wound 2 Which the patient has for couple of weeks now, and started as a trauma as the patient had did bang her leg twice patient had did have slight malodorous drainage noticed by the ER physician and the patient did have some dull aching pain 3-4 out of 10 and no radiation patient was started on vancomycin and infectious disease was consulted for further recommendation regarding her left leg wound. Review of Systems CONSTITUTIONAL: Positive for weakness. Fever EYES: No complaint. ENT:No complaint. RESPIRATORY: No complaint. CARDIOVASCULAR: No complaint. GENITOURINARY: No complaint. GASTROINTESTINAL: as per history of present illness MUSCULOSKELETAL: No complaint. INTEGUMENTARY: as per history of present illness PSYCHOLOGICAL: No complaint. ENDOCRINE: No complaint. NEUROLOGIC: No complaint. Past Medical History Past Medical History: Renal Disease Additional Past Medical History / Comment(s): neuropathy, liver chirrosis History of Any Multi-Drug Resistant Organisms: None Reported Past Surgical History: No Surgical Hx Reported Additional Past Surgical History / Comment(s): egd/colonoscopy, skn grafting legs Past Anesthesia/Blood Transfusion Reactions: No Reported Reaction Smoking Status: Former smoker - Past Family History Father Family Medical History: Congestive Heart Failure (CHF), Myocardial Infarction ([place]) Mother Family Medical History: Dementia Additional Family Medical History / Comment(s): heart problems Medications and Allergies Home Medications Medication Instructions Recorded Confirmed Type Folic Acid 1 mg PO DAILY #30 tablet 01/02/16 01/14/19 Rx Citalopram Hydrobromide [CeleXA] 20 mg PO DAILY 01/09/16 01/14/19 History Gabapentin [Neurontin] 300 mg PO TID 01/14/19 01/14/19 History Raloxifene [Evista] 60 mg PO DAILY 01/14/19 01/14/19 History Spironolactone 100 mg PO BID 01/14/19 01/14/19 History Allergies Allergy/AdvReac Type Severity Reaction Status Date / Time No Known Allergies Allergy Verified 01/09/16 17:01 Physical Exam Vitals: Vital Signs Temp Pulse Pulse Resp BP BP Pulse Ox 01/14/19 15:58 97.4 F L 87 16 107/70 97 01/14/19 12:42 98 F 01/14/19 12:30 97.9 F 83 16 106/68 96 01/14/19 10:48 98 F 78 16 92/62 97 01/14/19 10:18 97.8 F 74 6 L 100/55 98 01/14/19 10:08 97.8 F 80 16 101/59 98 01/14/19 08:00 97.8 F 82 16 96/56 97 01/14/19 05:30 98.2 F 77 16 88/55 96 01/14/19 03:26 97.8 F 16 90/53 95 01/14/19 02:13 97.3 F L 76 16 89/54 97 01/14/19 01:45 97.8 F 86 16 103/57 01/14/19 01:43 97.8 F 84 16 98/54 98 01/14/19 01:33 97.4 F L 83 16 90/54 100 01/14/19 00:45 97.9 F 81 19 101/68 97 01/14/19 00:09 87 16 94/57 96 01/14/19 00:00 81 16 01/13/19 22:39 98.8 F 96 20 96/56 96 01/13/19 20:54 101.3 F H 118 H 20 126/75 97 Intake and Output 01/14/19 01/14/19 01/14/19 06:59 14:59 22:59 Intake Total 310 710 660 Output Total 1400 Balance 310 710 -740 Intake: Intake, IV Titration 400 350 Amount Potassium Chloride 10 meq 300 100 In Water For Injection 1 100ml.bag @ 100 mls/hr IVPB Q1HR [facility] Rx#: [id number] Vancomycin 1,000 mg In 250 Sodium Chloride 0.9% 250 ml @ 125 mls/hr IVPB Q12H [facility] Rx#:[id number] metroNIDAZOLE-NS PMX 500 100 mg In Saline 1 100ml.bag @ 100 mls/hr IVPB ONCE [facility] Rx#:[id number] Blood Product 310 310 310 Rc As-1 Unit 310 [id number] Rc As-3 Unit 310 [id number] Output: Urine 1400 Other: Weight 53.5 kg 53.5 kg GENERAL DESCRIPTION: Elderly female lying in bed, no distress. No tachypnea or accessory muscle of respiration use. HEENT: Shows Pallor , no scleral icterus. Oral mucous membrane is dry. No pharyngeal erythema or thrush NECK: Trachea central, no thyromegaly. LUNGS: Unlabored breathing. Decreased breath sounds at the base. No wheeze or crackle. HEART: S1, S2, regular rate and rhythm. No loud murmur ABDOMEN: Soft, no tenderness , guarding or rigidity, no organomegaly EXTREMITIES: Left leg wound 2 with some dried scab Minimal redness no drainage SKIN: No rash, no masses palpable. NEUROLOGICAL: The patient is awake, alert, oriented x3, mood and affect normal. Results CBC & Chem 7: 01/15/19 06:51 01/15/19 06:51 Labs: Abnormal Lab Results - Last 24 Hours (Table) 01/13/19 01/13/19 01/13/19 Range/Units 21:05 21:05 21:05 WBC 17.4 H (3.8-10.6) k/uL RBC 2.50 L (3.80-5.40) m/uL Hgb 6.6 L* (11.4-16.0) gm/dL Hct 22.8 L (34.0-46.0) % MCHC 29.0 L (31.0-37.0) g/dL RDW 19.5 H (11.5-15.5) % Neutrophils # 15.2 H (1.3-7.7) k/uL PT (9.0-12.0) sec INR (<1.2) Sodium 135 L (137-145) mmol/L Potassium 3.0 L (3.5-5.1) mmol/L Carbon Dioxide 19 L (22-30) mmol/L Plasma Lactic Acid Mamadou (0.7-2.0) mmol/L Calcium 7.3 L (8.4-10.2) mg/dL Total Bilirubin 3.2 H (0.2-1.3) mg/dL AST 77 H (14-36) U/L Alkaline Phosphatase 163 H (38-126) U/L Total Protein 5.9 L (6.3-8.2) g/dL Albumin 2.3 L (3.5-5.0) g/dL Urine Appearance (Clear) Urine Protein (Negative) Urine Ketones (Negative) Urine Blood (Negative) Urine Bilirubin (Negative) Ur Leukocyte Esterase (Negative) Urine RBC (0-5) /hpf Urine Bacteria (None) /hpf Urine Mucus (None) /hpf Stool Occult Blood (Negative) Crossmatch See Detail 01/13/19 01/13/19 01/14/19 Range/Units 21:05 21:05 00:10 WBC (3.8-10.6) k/uL RBC (3.80-5.40) m/uL Hgb (11.4-16.0) gm/dL Hct (34.0-46.0) % MCHC (31.0-37.0) g/dL RDW (11.5-15.5) % Neutrophils # (1.3-7.7) k/uL PT 12.9 H (9.0-12.0) sec INR 1.2 H (<1.2) Sodium (137-145) mmol/L Potassium (3.5-5.1) mmol/L Carbon Dioxide (22-30) mmol/L Plasma Lactic Acid Mamadou 2.4 H* (0.7-2.0) mmol/L Calcium (8.4-10.2) mg/dL Total Bilirubin (0.2-1.3) mg/dL AST (14-36) U/L Alkaline Phosphatase (38-126) U/L Total Protein (6.3-8.2) g/dL Albumin (3.5-5.0) g/dL Urine Appearance (Clear) Urine Protein (Negative) Urine Ketones (Negative) Urine Blood (Negative) Urine Bilirubin (Negative) Ur Leukocyte Esterase (Negative) Urine RBC (0-5) /hpf Urine Bacteria (None) /hpf Urine Mucus (None) /hpf Stool Occult Blood Positive H (Negative) Crossmatch 01/14/19 01/14/19 Range/Units 14:20 15:00 WBC (3.8-10.6) k/uL RBC (3.80-5.40) m/uL Hgb (11.4-16.0) gm/dL Hct (34.0-46.0) % MCHC (31.0-37.0) g/dL RDW (11.5-15.5) % Neutrophils # (1.3-7.7) k/uL PT (9.0-12.0) sec INR (<1.2) Sodium (137-145) mmol/L Potassium 3.3 L (3.5-5.1) mmol/L Carbon Dioxide (22-30) mmol/L Plasma Lactic Acid Mamadou (0.7-2.0) mmol/L Calcium (8.4-10.2) mg/dL Total Bilirubin (0.2-1.3) mg/dL AST (14-36) U/L Alkaline Phosphatase (38-126) U/L Total Protein (6.3-8.2) g/dL Albumin (3.5-5.0) g/dL Urine Appearance Turbid H (Clear) Urine Protein 1+ H (Negative) Urine Ketones Trace H (Negative) Urine Blood Small H (Negative) Urine Bilirubin 1+ H (Negative) Ur Leukocyte Esterase Trace H (Negative) Urine RBC 10 H (0-5) /hpf Urine Bacteria Many H (None) /hpf Urine Mucus Many H (None) /hpf Stool Occult Blood (Negative) Crossmatch Microbiology - Last 24 Hours (Table) 01/14/19 10:24 Anaerobic Culture - Preliminary Leg - Left 01/14/19 10:24 Wound Culture - Preliminary Leg - Left Assessment and Plan Assessment: 1-patient with left leg wound 2 traumatic with some malodorous drainage and concern for possible secondary cellulitis likely from a gram-positive skin omer. 2-patient with a fever and leukocytosis meeting criteria for sepsis source could be left lower extremity wound and cellulitis underlying UTI or SBP not entirely excluded. (1) Ulcer of left lower leg Current Visit: Yes Status: Acute Code(s): L97.929 - NON-PRS CHRONIC ULC UNSP PRT OF L LOW LEG W UNSP SEVERITY SNOMED Code(s): 261109504 (2) Sepsis Current Visit: Yes Status: Acute Code(s): A41.9 - SEPSIS, UNSPECIFIED ORGANISM SNOMED Code(s): 19873582 Plan: 1-vancomycin pharmacy to dose target trough of 15 while watching her kidney function closely 2-Rocephin 1 g daily 3-dry protective dressing to the left leg wound to be changed daily We will follow on clinical condition and cultures to further adjust medication if needed Thank you for this consultation will follow this patient along with you Time with Patient: Greater than 30
--- NOTE | 2019-01-15 19:42 | PN ---
PROGRESS NOTE DATE OF SERVICE: 01/15/2019. REASON FOR FOLLOWUP: Left leg wound and cellulitis. INTERVAL HISTORY: The patient is currently afebrile. The patient's overall pain and discomfort to the left leg has decreased in intensity. The patient denies having any chest pain, shortness of breath or cough. No diarrhea. PHYSICAL EXAMINATION: Blood pressure is 125/69 with a pulse of 98, temperature 98. She is 97% on room air. General description is an elderly female lying in bed in no distress. RESPIRATORY SYSTEM: Unlabored breathing. Clear to auscultation anteriorly. HEART: S1, S2. Regular rate and rhythm. ABDOMEN: Soft. No tenderness. Left leg with but surrounding redness has improved; no drainage. LABS: Hemoglobin is 10, white count 7.6. DIAGNOSTIC IMPRESSION AND PLAN: Patient admitted to hospital with weakness, lethargy, some mental status changes. Did have a fever, with the source possible UTI versus SBP or left leg wound with secondary cellulitis. The patient is currently covered with vancomycin. Rocephin will be added to cover for the gram-negative. Waiting for the culture to finalize. Local care to the left leg with dry protective dressing. Continue supportive care. MMODL / IJN: [id number] /
[2019-01-15] MEDS ORDERED: VANCOMYCIN TROUGH DUE 1 EACH MISC MISCELLANE ONE (23:00)
[2019-01-16 07:29] LABS: Anisocytosis Slight; HCT 29.8 % (34.0-46.0); HGB 9.6 gm/dL (11.4-16.0); Hypochromasia Moderate; MCH 28.4 pg (25.0-35.0); MCHC 32.1 g/dL (31.0-37.0); MCV 88.4 fL (80.0-100.0); Mean Platelet Volume 7.2; Poikilocytosis Slight; RBC 3.37 m/uL (3.80-5.40); RDW 17.6 % (11.5-15.5)
[2019-01-16 07:37] LABS: ALT 33 U/L (9-52); AST 63 U/L (14-36); African American GFR (CKD) >90 (>60 ml/min/1.73 sqM); Albumin 2.2 g/dL (3.5-5.0); Alkaline Phosphatase 175 U/L (38-126); Anion Gap 8 mmol/L; Blood Urea Nitrogen 8 mg/dL (7-17); Calcium 7.7 mg/dL (8.4-10.2); Carbon Dioxide 21 mmol/L (22-30); Chloride 107 mmol/L (98-107); Glucose 84 mg/dL (74-99); Potassium 3.4 mmol/L (3.5-5.1); Sodium 136 mmol/L (137-145); Total Bilirubin 2.5 mg/dL (0.2-1.3); Total Protein 5.6 g/dL (6.3-8.2)
[2019-01-16 08:24] LABS: Platelet Count 256 k/uL (150-450)
[2019-01-16] MEDS: GABAPENTIN 100 MG CAP PO SCH ×3 (09:29→20:26)
[2019-01-16] MEDS: PANTOPRAZOLE 40 MG TABLET PO SCH (09:29)
[2019-01-16] MEDS: LACTULOSE 20 GM/30 ML CUP PO SCH ×3 (09:29→20:25)
[2019-01-16] MEDS: THIAMINE 100 MG TAB PO SCH (09:30)
[2019-01-16] MEDS: MULTIVITAMINS, THERA 1 EACH TAB PO SCH (09:30)
[2019-01-16] MEDS: RIFAXIMIN 200 MG TAB PO SCH ×3 (09:30→20:26)
[2019-01-16] MEDS: FOLIC ACID 1 MG TAB PO SCH (09:30)
[2019-01-16] MEDS: SPIRONOLACTONE 25 MG TAB PO SCH (09:32)
[2019-01-16] MEDS: VANCOMYCIN 750 MG in SODIUM CHLORIDE 0.9% 250 ML IVPB SCH ×2 (12:22→23:18)
[2019-01-17 07:16] LABS: African American GFR (CKD) >90 (>60 ml/min/1.73 sqM)
[2019-01-17] MEDS: MULTIVITAMINS, THERA 1 EACH TAB PO SCH (09:16)
[2019-01-17] MEDS: FOLIC ACID 1 MG TAB PO SCH (09:16)
[2019-01-17] MEDS: GABAPENTIN 100 MG CAP PO SCH ×3 (09:16→20:51)
[2019-01-17] MEDS: SPIRONOLACTONE 25 MG TAB PO SCH (09:17)
[2019-01-17] MEDS: PANTOPRAZOLE 40 MG TABLET PO SCH (09:17)
[2019-01-17] MEDS: THIAMINE 100 MG TAB PO SCH (09:18)
[2019-01-17] MEDS: LACTULOSE 20 GM/30 ML CUP PO SCH ×2 (09:19→19:43)
[2019-01-17] MEDS: VANCOMYCIN 750 MG in SODIUM CHLORIDE 0.9% 250 ML IVPB SCH ×2 (11:34→22:54)
[2019-01-17] MEDS: RIFAXIMIN 200 MG TAB PO SCH ×3 (11:34→20:59)
--- NOTE | 2019-01-17 11:41 | P.PN ---
Subjective Progress Note Date: 01/15/19 Principal diagnosis: Ascites Liver cirrhosis likely alcoholic 68-year-old female with known history of alcoholic cirrhosis quit drinking a while ago did have a drink about a week ago was found to be weak in bed unresponsive because of which are patient was brought by the neighbors and family members to the hospital. Patient is found to be severely anemic with hemoglobin of 6.6 patient denied any history of esophageal varices or hemorrhoids in the past. Patient does have lactic is doses may be related to liver failure but patient does have left the leg ulcers patient does have bilateral venous stasis dermatosis and the does have foul-smelling discharge with some redness around it patient was started on the vancomycin patient doesn't have an denied any abdominal pain. Any fever. Patient denied any obvious hematemesis, hematochezia, melena. Patient is bit hypotensive which is expected for renal failure patient does have some asterixis because of which I'm obtaining ammonia level patient is on rifaximin and lactulose for hepatic transplant. Which will be continued. 01/15/2019 Patient denied any complains of chest pain or shortness of breath today. Patient is status post Ultrasound paracentesis with 3 L of ascites removed, fluid studies pending. Patient is on antibiotics for left lower extremity wound and cellulitis. ID is on board. Continue Aldactone 100 mg daily Continue lactulose and Xifaxan Current medications reviewed. Objective - Vital Signs Vital signs: Vital Signs Temp 98.2 F 01/15/19 09:00 Pulse 99 01/15/19 09:00 Resp 20 01/15/19 09:00 BP 105/66 01/15/19 09:00 Pulse Ox 94 L 01/15/19 09:00 Intake & Output 01/14/19 01/15/19 01/15/19 18:59 06:59 18:59 Intake Total 1610 370 200 Output Total 1400 Balance 210 370 200 Weight 53.5 kg 53.5 kg Intake: Intake, IV Titration 750 250 Amount Potassium Chloride 10 meq 400 In Water For Injection 1 100ml.bag @ 100 mls/hr IVPB Q1HR [facility] Rx#: [id number] Vancomycin 1,000 mg In 250 250 Sodium Chloride 0.9% 250 ml @ 125 mls/hr IVPB Q12H [facility] Rx#:[id number] metroNIDAZOLE-NS PMX 500 100 mg In Saline 1 100ml.bag @ 100 mls/hr IVPB [facility] Rx#:[id number] Oral 240 120 200 Blood Product 620 Rc As-1 Unit 310 [id number] Output: Urine 1400 Other: Voiding Method Bedpan Bedpan # Voids 1 - Exam GENERAL: The patient is alert and oriented x3, not in any acute distress. Thin built HEENT: Pupils are round and equally reacting to light. EOMI. No scleral icterus. No conjunctival pallor. Normocephalic, atraumatic. No pharyngeal erythema. No thyromegaly. CARDIOVASCULAR: S1 and S2 present. No murmurs, rubs, or gallops. PULMONARY: Chest is clear to auscultation, no wheezing or crackles. ABDOMEN: Soft, nontender, distended with ascites MUSCULOSKELETAL: No joint swelling or deformity. EXTREMITIES: No cyanosis, clubbing, or pedal edema. NEUROLOGICAL: Gross neurological examination did not reveal any focal deficits. SKIN: Left leg stage II ulcerations with foul-smelling discharge and some redness - Labs CBC & Chem 7: 01/16/19 05:59 01/17/19 06:19 Labs: Abnormal Lab Results - Last 24 Hours (Table) 01/13/19 01/14/19 01/14/19 Range/Units 21:05 14:20 15:00 RBC (3.80-5.40) m/uL Hgb (11.4-16.0) gm/dL Hct (34.0-46.0) % RDW (11.5-15.5) % Plt Count (150-450) k/uL Sodium (137-145) mmol/L Potassium 3.3 L (3.5-5.1) mmol/L Carbon Dioxide (22-30) mmol/L Creatinine (0.52-1.04) mg/dL Glucose (74-99) mg/dL Calcium (8.4-10.2) mg/dL Urine Appearance Turbid H (Clear) Urine Protein 1+ H (Negative) Urine Ketones Trace H (Negative) Urine Blood Small H (Negative) Urine Bilirubin 1+ H (Negative) Ur Leukocyte Esterase Trace H (Negative) Urine RBC 10 H (0-5) /hpf Urine Bacteria Many H (None) /hpf Urine Mucus Many H (None) /hpf Crossmatch See Detail 01/14/19 01/15/19 01/15/19 Range/Units 19:50 06:51 06:51 RBC 3.55 L 3.53 L (3.80-5.40) m/uL Hgb 10.2 L D 10.0 L (11.4-16.0) gm/dL Hct 32.0 L 31.2 L (34.0-46.0) % RDW 18.2 H 18.2 H (11.5-15.5) % Plt Count 110 L D (150-450) k/uL Sodium 134 L (137-145) mmol/L Potassium (3.5-5.1) mmol/L Carbon Dioxide 18 L (22-30) mmol/L Creatinine 0.51 L (0.52-1.04) mg/dL Glucose 66 L (74-99) mg/dL Calcium 7.3 L (8.4-10.2) mg/dL Urine Appearance (Clear) Urine Protein (Negative) Urine Ketones (Negative) Urine Blood (Negative) Urine Bilirubin (Negative) Ur Leukocyte Esterase (Negative) Urine RBC (0-5) /hpf Urine Bacteria (None) /hpf Urine Mucus (None) /hpf Crossmatch Microbiology - Last 24 Hours (Table) 01/14/19 10:24 Gram Stain - Preliminary Leg - Left Wound Culture - Preliminary 01/13/19 21:05 Blood Culture - Preliminary Blood No Growth after 24 hours 01/14/19 14:20 Urine Culture - Preliminary Urine,Clean Catch 01/14/19 10:24 Anaerobic Culture - Preliminary Leg - Left Assessment and Plan Assessment: -Severe anemia no evidence of acute GI bleed at this time. chronic anemia from liver disease which is contributing to her low hemoglobin. -Alcoholic cirrhosis: Supportive care. Continue with lactulose and rifaximin for hepatic encephalopathy although I'm holding off on the diuretic therapy as she is receiving IV fluids for lactic is doses and low blood pressure -Ascites. Status post paracentesis follow for cultures. -Lactic acidosis secondary to liver failure rather than sepsis possible intravascular volume depletion which is intermittent lactic acidosis -Left leg cellulitis with ulcerations venous stasis ulcers continue vancomycin infectious disease was consulted local wound care -Peripheral neuropathy Time with Patient: Greater than 30
--- NOTE | 2019-01-17 11:42 | P.PN ---
Subjective Progress Note Date: 01/16/19 Principal diagnosis: Ascites Liver cirrhosis likely alcoholic 68-year-old female with known history of alcoholic cirrhosis quit drinking a while ago did have a drink about a week ago was found to be weak in bed unresponsive because of which are patient was brought by the neighbors and family members to the hospital. Patient is found to be severely anemic with hemoglobin of 6.6 patient denied any history of esophageal varices or hemorrhoids in the past. Patient does have lactic is doses may be related to liver failure but patient does have left the leg ulcers patient does have bilateral venous stasis dermatosis and the does have foul-smelling discharge with some redness around it patient was started on the vancomycin patient doesn't have an denied any abdominal pain. Any fever. Patient denied any obvious hematemesis, hematochezia, melena. Patient is bit hypotensive which is expected for renal failure patient does have some asterixis because of which I'm obtaining ammonia level patient is on rifaximin and lactulose for hepatic transplant. Which will be continued. 01/15/2019 Patient denied any complains of chest pain or shortness of breath today. Patient is status post Ultrasound paracentesis with 3 L of ascites removed, fluid studies pending. Patient is on antibiotics for left lower extremity wound and cellulitis. ID is on board. Continue Aldactone 100 mg daily Continue lactulose and Xifaxan 01/16/2019 Patient denied any complaints of chest pain or shortness of breath. No abdominal pain. Left lower extremity leg wound is improving. Currently on antibiotics in the form of ceftriaxone and vancomycin. ID is on board. Possible discharge pending final ID recommendations. Awaiting final culture report. No other acute overnight issues. All other review of systems negative except the above. Current medications reviewed. Objective - Vital Signs Vital signs: Vital Signs Temp 98.8 F 01/16/19 16:00 Pulse 99 01/16/19 16:00 Resp 16 01/16/19 16:00 BP 117/63 01/16/19 16:00 Pulse Ox 94 L 01/16/19 16:00 Intake & Output 01/16/19 01/16/19 01/17/19 06:59 18:59 06:59 Intake Total 780 Balance 780 Weight 53 kg Intake: Intake, IV Titration 250 Amount Vancomycin 750 mg In 250 Sodium Chloride 0.9% 250 ml @ 125 mls/hr IVPB Q12H [facility] Rx#:[id number] Oral 530 Other: Voiding Method Bedpan Bedpan # Voids 0 3 # Bowel Movements 1 - Exam GENERAL: The patient is alert and oriented x3, not in any acute distress. Thin built HEENT: Pupils are round and equally reacting to light. EOMI. No scleral icterus. No conjunctival pallor. Normocephalic, atraumatic. No pharyngeal erythema. No thyromegaly. CARDIOVASCULAR: S1 and S2 present. No murmurs, rubs, or gallops. PULMONARY: Chest is clear to auscultation, no wheezing or crackles. ABDOMEN: Soft, nontender, distended with ascites MUSCULOSKELETAL: No joint swelling or deformity. EXTREMITIES: No cyanosis, clubbing, or pedal edema. NEUROLOGICAL: Gross neurological examination did not reveal any focal deficits. SKIN: Left leg stage II ulcerations with foul-smelling discharge and some r edness - Labs CBC & Chem 7: 01/16/19 05:59 01/17/19 06:19 Labs: Abnormal Lab Results - Last 24 Hours (Table) 01/16/19 01/16/19 Range/Units 05:59 05:59 RBC 3.37 L (3.80-5.40) m/uL Hgb 9.6 L (11.4-16.0) gm/dL Hct 29.8 L (34.0-46.0) % RDW 17.6 H (11.5-15.5) % Sodium 136 L (137-145) mmol/L Potassium 3.4 L (3.5-5.1) mmol/L Carbon Dioxide 21 L (22-30) mmol/L Calcium 7.7 L (8.4-10.2) mg/dL Total Bilirubin 2.5 H (0.2-1.3) mg/dL AST 63 H (14-36) U/L Alkaline Phosphatase 175 H (38-126) U/L Total Protein 5.6 L (6.3-8.2) g/dL Albumin 2.2 L (3.5-5.0) g/dL Microbiology - Last 24 Hours (Table) 01/15/19 14:13 Gram Stain - Preliminary Paracentesis Fluid Body Fluid Culture - Preliminary 01/14/19 10:24 Anaerobic Culture - Preliminary Leg - Left 01/14/19 10:24 Gram Stain - Final Leg - Left Wound Culture - Final 01/13/19 21:05 Blood Culture - Preliminary Blood No Growth after 48 hours 01/15/19 14:13 Anaerobic Culture - Preliminary Ascites Fluid 01/14/19 14:20 Urine Culture - Final Urine,Clean Catch Assessment and Plan Assessment: -Severe anemia no evidence of acute GI bleed at this time. chronic anemia from liver disease which is contributing to her low hemoglobin. -Alcoholic cirrhosis: Supportive care. Continue with lactulose and rifaximin for hepatic encephalopathy although I'm holding off on the diuretic therapy as she is receiving IV fluids for lactic is doses and low blood pressure -Ascites. Status post paracentesis follow for cultures. -Lactic acidosis secondary to liver failure rather than sepsis possible intravascular volume depletion which is intermittent lactic acidosis -Left leg cellulitis with ulcerations venous stasis ulcers continue vancomycin infectious disease was consulted local wound care -Peripheral neuropathy Time with Patient: Greater than 30
[2019-01-17] MEDS: POTASSIUM CHLORIDE ER 20 MEQ TAB.ER PO SCH ×2 (19:43→20:51)
--- NOTE | 2019-01-18 01:42 | PN ---
PROGRESS NOTE DATE OF SERVICE: 01/17/2019. REASON FOR FOLLOW UP: 1. Fever, question of urinary tract infection versus spontaneous bacterial peritonitis. 2. Left leg wound with concern for possible cellulitis. INTERVAL HISTORY: The patient is currently afebrile. The patient has been breathing comfortably. The patient denies having any chest pain. No shortness of breath or cough. No pain to the left leg wound area. EXAMINATION: Blood pressure 123/76 with a pulse of 99, temperature 98.2. She is 96% on room air. General description is an elderly female lying in bed in no distress. Respiratory system: Unlabored breathing. Clear to auscultation anteriorly. Heart S1, S2. Regular rate and rhythm. Abdomen soft, no tenderness. Left leg wound is crusting up, surrounding redness has resolved. No drainage. LABS: Blood culture has been negative. Urine is negative. The left leg wound cultures come back negative. fluid. Cultures currently pending. DIAGNOSTIC IMPRESSION AND PLAN: Patient with fever with concern for possible urinary tract infection versus left leg wound infection with cellulitis. Currently covered with vancomycin and Rocephin. Also concern for possible though the ascitic fluid not significantly positive with culture negative for resistant pathogen. Discontinue vancomycin. Keep the patient on Rocephin. Local wound care with dry protective dressing and leave the scabbed wound. Continue supportive care. MMODL / IJN: [id number] /
[2019-01-18 07:36] LABS: Albumin, Fluid Source Ascites
[2019-01-18 09:33] LABS: Anisocytosis Slight; Basophils # (A) 0.1 k/uL (0-0.2); Basophils % (A) 1 %; Eosinophils # (A) 0.2 k/uL (0-0.7); Eosinophils % (A) 5 %; HGB 9.9 gm/dL (11.4-16.0); Hypochromasia Moderate; Lymphocytes % (A) 23 %; MCH 28.7 pg (25.0-35.0); MCHC 31.9 g/dL (31.0-37.0); MCV 90.1 fL (80.0-100.0); Mean Platelet Volume 7.1; Monocytes # (A) 0.3 k/uL (0-1.0); Monocytes % (A) 6 %; Neutrophils # (A) 2.5 k/uL (1.3-7.7); Neutrophils % (A) 61 %; Platelet Count 244 k/uL (150-450); Poikilocytosis Slight; RBC 3.44 m/uL (3.80-5.40); RDW 17.7 % (11.5-15.5); WBC 4.1 k/uL (3.8-10.6)
[2019-01-18 09:44] LABS: African American GFR (CKD) >90 (>60 ml/min/1.73 sqM); Anion Gap 6 mmol/L; Blood Urea Nitrogen 5 mg/dL (7-17); Calcium 7.5 mg/dL (8.4-10.2); Carbon Dioxide 20 mmol/L (22-30); Chloride 109 mmol/L (98-107); Glucose 80 mg/dL (74-99); Potassium 3.4 mmol/L (3.5-5.1); Sodium 135 mmol/L (137-145)
[2019-01-18] MEDS: LACTULOSE 20 GM/30 ML CUP PO SCH ×3 (10:04→22:00)
[2019-01-18] MEDS: PANTOPRAZOLE 40 MG TABLET PO SCH (10:04)
[2019-01-18] MEDS: RIFAXIMIN 200 MG TAB PO SCH ×3 (10:04→21:59)
[2019-01-18] MEDS: THIAMINE 100 MG TAB PO SCH (10:05)
[2019-01-18] MEDS: MULTIVITAMINS, THERA 1 EACH TAB PO SCH (10:05)
[2019-01-18] MEDS: SPIRONOLACTONE 25 MG TAB PO SCH (10:05)
[2019-01-18] MEDS: GABAPENTIN 100 MG CAP PO SCH ×3 (10:05→21:59)
[2019-01-18] MEDS: FOLIC ACID 1 MG TAB PO SCH (10:05)
[2019-01-18] MEDS ORDERED: VANCOMYCIN TROUGH DUE 1 EACH MISC MISCELLANE ONE (11:00)
[2019-01-18] MEDS: POTASSIUM CHLORIDE ER 20 MEQ TAB.ER PO SCH ×2 (11:12→12:38)
[2019-01-18 11:44] VITALS: BMI 21.9
--- NOTE | 2019-01-18 21:13 | P.PN ---
Progress Note - Text Progress Note Date: 01/18/19 Presenting complaint: Tired Interval history: This patient with no known history of alcoholic cirrhosis stopped drinking a while ago. Brought in because was found unresponsive was found to have hemoglobin of 6.6. Also found to have lactic acidosis. Patient also is guarded lower extremity leg ulcers patient had been bumped against a bench. Also had low blood pressure on presentation. Also on list for hepatic transplant. Being followed by Dr. Keller from ID. Also status post 3 L of paracentesis. On antibiotics. Did receive 2 units of blood Today-feeling better. Did tolerate her diet. Has been mostly in bed. Looking to go to inpatient rehab. Review of systems: Was done for constitutional, cardiovascular, GI, pulmonary. relevant finding as above Active Medications Folic Acid (Folic Acid) 1 mg PO DAILY [facility] Last Admin: 01/18/19 10:05 Dose: 1 mg Documented by: Gabapentin (Neurontin) 100 mg PO TID [facility] Last Admin: 01/18/19 16:33 Dose: 100 mg Documented by: Ceftriaxone Sodium 1 gm/ (Sodium Chloride) 50 mls @ 100 mls/hr IVPB Q24H [facility] Last Admin: 01/18/19 16:36 Dose: 100 mls/hr Documented by: Lactulose (Cephulac) 20 gm PO BID [facility] Last Admin: 01/18/19 10:04 Dose: 20 gm Documented by: Miscellaneous Information (Potassium Per Protocol) 1 each MISCELLANE DAILY PRN; Protocol PRN Reason: Per Protocol Multivitamins (Theragran) 1 each PO DAILY [facility] Last Admin: 01/18/19 10:05 Dose: 1 each Documented by: Naloxone HCl (Narcan) 0.2 mg IV Q2M PRN PRN Reason: Opioid Reversal Pantoprazole Sodium (Protonix) 40 mg PO DAILY [facility] Last Admin: 01/18/19 10:04 Dose: 40 mg Documented by: Rifaximin (Xifaxan) 200 mg PO TID [facility] Last Admin: 01/18/19 16:33 Dose: 200 mg Documented by: Spironolactone (Aldactone) 100 mg PO DAILY [facility] Last Admin: 01/18/19 10:05 Dose: 100 mg Documented by: Thiamine HCl (Vitamin B-1) 100 mg PO DAILY [facility] Last Admin: 01/18/19 10:05 Dose: 100 mg Documented by: On examination: VITAL SIGNS: 98.2, 100, 16, 122/75, 96% room air GENERAL APPEARANCE: Average build. Lying in bed, not in distress. HEENT: Normal external appearance of nose and ear. Oral cavity normal EYES: Pupils equal. Conjunctiva pale. NECK: JVD not raised. Mass not palpable. RESPIRATORY: Respiratory effort normal. Lungs clear to auscultation. CARDIOVASCULAR: First and second sounds normal. Edema present. ABDOMEN: Soft. Liver and spleen not palpable. No tenderness. No mass palpable. PSYCHIATRY: Alert and oriented x3. Mood and affect normal. DERMATOLOGICAL: Wound on the left lambert. 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 Made inpatient. Looking for inpatient rehab. Seen by Dr. Keller from ID. Vancomycin discontinued. Patient can be switched over to Ceftin upon discharge. -
--- NOTE | 2019-01-18 21:55 | P.PN ---
Subjective Progress Note Date: 01/17/19 Principal diagnosis: Ascites Liver cirrhosis likely alcoholic 68-year-old female with known history of alcoholic cirrhosis quit drinking a while ago did have a drink about a week ago was found to be weak in bed unresponsive because of which are patient was brought by the neighbors and family members to the hospital. Patient is found to be severely anemic with hemoglobin of 6.6 patient denied any history of esophageal varices or hemorrhoids in the past. Patient does have lactic is doses may be related to liver failure but patient does have left the leg ulcers patient does have bilateral venous stasis dermatosis and the does have foul-smelling discharge with some redness around it patient was started on the vancomycin patient doesn't have an denied any abdominal pain. Any fever. Patient denied any obvious hematemesis, hematochezia, melena. Patient is bit hypotensive which is expected for renal failure patient does have some asterixis because of which I'm obtaining ammonia level patient is on rifaximin and lactulose for hepatic transplant. Which will be continued. 01/15/2019 Patient denied any complains of chest pain or shortness of breath today. Patient is status post Ultrasound paracentesis with 3 L of ascites removed, fluid studies pending. Patient is on antibiotics for left lower extremity wound and cellulitis. ID is on board. Continue Aldactone 100 mg daily Continue lactulose and Xifaxan 01/16/2019 Patient denied any complaints of chest pain or shortness of breath. No abdominal pain. Left lower extremity leg wound is improving. Currently on antibiotics in the form of ceftriaxone and vancomycin. ID is on board. Possible discharge pending final ID recommendations. Awaiting final culture report. No other acute overnight issues. All other review of systems negative except the above. 01/17/2019 Patient denied any complaints of chest pain or shortness of breath. Feels generally weak. Currently on antibiotics in the form of ceftriaxone and vancomycin as per ID recommendations. Left lower extremity wound is healing well. Redness and swelling improved. Anticipate discharge with final ID recommendations. Current medications reviewed. Objective - Vital Signs Vital signs: Vital Signs Temp 98.2 F 01/17/19 11:50 Pulse 94 01/17/19 11:50 Resp 16 01/17/19 11:50 BP 117/81 01/17/19 11:50 Pulse Ox 95 01/17/19 11:50 Intake & Output 01/16/19 01/17/19 01/17/19 18:59 06:59 18:59 Intake Total 780 200 Balance 780 200 Weight 52 kg Intake: Intake, IV Titration 250 Amount Vancomycin 750 mg In 250 Sodium Chloride 0.9% 250 ml @ 125 mls/hr IVPB Q12H [facility] Rx#:[id number] Oral 530 200 Other: Voiding Method Bedpan Bedpan Bedpan # Voids 3 2 2 # Bowel Movements 1 2 - Exam GENERAL: The patient is alert and oriented x3, not in any acute distress. Thin built HEENT: Pupils are round and equally reacting to light. EOMI. No scleral icterus. No conjunctival pallor. Normocephalic, atraumatic. No pharyngeal erythema. No thyromegaly. CARDIOVASCULAR: S1 and S2 present. No murmurs, rubs, or gallops. PULMONARY: Chest is clear to auscultation, no wheezing or crackles. ABDOMEN: Soft, nontender, distended with ascites MUSCULOSKELETAL: No joint swelling or deformity. EXTREMITIES: No cyanosis, clubbing, or pedal edema. NEUROLOGICAL: Gross neurological examination did not reveal any focal deficits. SKIN: Left leg stage II ulcerations with foul-smelling discharge and some redness - Labs CBC & Chem 7: 01/18/19 09:10 01/18/19 09:10 Labs: Microbiology - Last 24 Hours (Table) 01/15/19 14:13 Gram Stain - Preliminary Paracentesis Fluid Body Fluid Culture - Preliminary 01/13/19 21:05 Blood Culture - Preliminary Blood No Growth after 72 hours 01/14/19 10:24 Anaerobic Culture - Preliminary Leg - Left Assessment and Plan Assessment: -Severe anemia no evidence of acute GI bleed at this time. chronic anemia from liver disease which is contributing to her low hemoglobin. -Alcoholic cirrhosis: Supportive care. Continue with lactulose and rifaximin for hepatic encephalopathy although I'm holding off on the diuretic therapy as she is receiving IV fluids for lactic is doses and low blood pressure -Ascites. Status post paracentesis follow for cultures. -Lactic acidosis secondary to liver failure rather than sepsis possible intravascular volume depletion which is intermittent lactic acidosis -Left leg cellulitis with ulcerations venous stasis ulcers continue vancomycin infectious disease was consulted local wound care -Peripheral neuropathy Time with Patient: Greater than 30
--- NOTE | 2019-01-18 22:59 | PN ---
PROGRESS NOTE DATE OF SERVICE: 01/18/2019. REASON FOR FOLLOW UP: Left leg wound cellulitis and possible UTI. INTERVAL HISTORY: The patient is currently afebrile. Patient has been breathing comfortably. Denies having any chest pain or any cough. Left leg with no worsening pain. No nausea, vomiting, or any diarrhea. PHYSICAL EXAMINATION: Blood pressure is 129/84 with a pulse of 102, temperature 98.1. She is 100% on room air. General description is an elderly female, lying in bed in no distress. Respiratory system: Unlabored breathing. Clear to auscultation anteriorly. Heart S1, S2. Regular rate and rhythm. ABDOMEN: Soft, no tenderness. Left leg wound is currently covered with scab. Surrounding redness has improved. LABS: Hemoglobin is 9.8, white count 4.1. BUN of 5, creatinine 0.55. Culture has been negative so far. DIAGNOSTIC IMPRESSION AND PLAN: Patient with a fever with initial concern for possible urinary tract infection and positive. Blood culture has been negative. Also with left lower extremity cellulitis along with wounds. Currently cultures have been negative for resistant pathogen. Patient on Rocephin with the plan to finish therapy with oral Ceftin. Local care to left leg wound with a dry protective dressing. Continue supportive care. MMODL / IJN: [id number] /
[2019-01-19] MEDS: PANTOPRAZOLE 40 MG TABLET PO SCH (08:24)
[2019-01-19] MEDS: SPIRONOLACTONE 25 MG TAB PO SCH (08:25)
[2019-01-19] MEDS: FOLIC ACID 1 MG TAB PO SCH (08:25)
[2019-01-19] MEDS: RIFAXIMIN 200 MG TAB PO SCH ×3 (08:25→21:55)
[2019-01-19] MEDS: GABAPENTIN 100 MG CAP PO SCH ×3 (08:25→21:55)
[2019-01-19] MEDS: MULTIVITAMINS, THERA 1 EACH TAB PO SCH (08:25)
[2019-01-19] MEDS: THIAMINE 100 MG TAB PO SCH (08:25)
[2019-01-19] MEDS: LACTULOSE 20 GM/30 ML CUP PO SCH (15:53)
--- NOTE | 2019-01-19 16:30 | PN ---
PROGRESS NOTE DATE OF SERVICE: 01/19/2019. REASON FOR FOLLOWUP: Left leg wound cellulitis. INTERVAL HISTORY: The patient is currently afebrile. Patient has been breathing comfortably. Denies having any chest pain or cough. No nausea, vomiting, abdominal pain, or pain in the left leg area. PHYSICAL EXAMINATION: Blood pressure 136/85 with a pulse of 73, temperature 97.7, she is 96% on room air. General description is an elderly female lying in bed in no distress. Respiratory system: Unlabored breathing, clear to auscultation anteriorly. HEART: S1, S2. Regular rate and rhythm. Abdomen soft. No tenderness. LABS: Hemoglobin 9.9, white count 4.1. BUN of 5, creatinine 0.55. The peritoneal fluid culture so far pending. Urine is negative. DIAGNOSTIC IMPRESSION AND PLAN: 1. Patient with a fever which is likely multifactorial in this patient with possible . Initial concern for urinary tract infection with culture so far negative. Overall, she responded to Rocephin to continue and finish therapy short course of oral Ceftin. 2. Left leg wound, traumatic, currently covered with scab, dry protective dressing. Follow up with wound care in a week. 3. Continue supportive care. MMODL / IJN: [id number] /
[2019-01-19] MEDS: NAPROXEN 250 MG TAB PO SCH (17:57)
--- NOTE | 2019-01-19 23:37 | P.PN ---
Progress Note - Text Progress Note Date: 01/19/19 Presenting complaint: Tired Interval history: This patient with no known history of alcoholic cirrhosis stopped drinking a while ago. Brought in because was found unresponsive was found to have hemoglobin of 6.6. Also found to have lactic acidosis. Patient also is guarded lower extremity leg ulcers patient had been bumped against a bench. Also had low blood pressure on presentation. Also on list for hepatic transplant. Being followed by Dr. Keller from ID. Also status post 3 L of paracentesis. On antibiotics. Did receive 2 units of blood Today-no new issues. Starting a diet. Getting antibiotics. Appetite.. Seen by physical therapy. Barely able to stand. Review of systems: Was done for constitutional, cardiovascular, GI, pulmonary. relevant finding as above Active Medications Folic Acid (Folic Acid) 1 mg PO DAILY [facility] Last Admin: 01/19/19 08:25 Dose: 1 mg Documented by: Gabapentin (Neurontin) 100 mg PO TID [facility] Last Admin: 01/19/19 21:55 Dose: 100 mg Documented by: Ceftriaxone Sodium 1 gm/ (Sodium Chloride) 50 mls @ 100 mls/hr IVPB Q24H [facility] Last Admin: 01/19/19 16:19 Dose: 100 mls/hr Documented by: Lactulose (Cephulac) 20 gm PO BID [facility] Last Admin: 01/19/19 15:53 Dose: Not Given Documented by: Miscellaneous Information (Potassium Per Protocol) 1 each MISCELLANE DAILY PRN; Protocol PRN Reason: Per Protocol Multivitamins (Theragran) 1 each PO DAILY [facility] Last Admin: 01/19/19 08:25 Dose: 1 each Documented by: Naloxone HCl (Narcan) 0.2 mg IV Q2M PRN PRN Reason: Opioid Reversal Naproxen (Naprosyn) 250 mg PO TID-W/MEALS [facility] Last Admin: 01/19/19 17:57 Dose: 250 mg Documented by: Pantoprazole Sodium (Protonix) 40 mg PO DAILY [facility] Last Admin: 01/19/19 08:24 Dose: 40 mg Documented by: Rifaximin (Xifaxan) 200 mg PO TID [facility] Last Admin: 01/19/19 21:55 Dose: 200 mg Documented by: Spironolactone (Aldactone) 100 mg PO DAILY [facility] Last Admin: 01/19/19 08:25 Dose: 100 mg Documented by: Thiamine HCl (Vitamin B-1) 100 mg PO DAILY [facility] Last Admin: 01/19/19 08:25 Dose: 100 mg Documented by: On examination: VITAL SIGNS: 98, 96, 16, 120/68, 98% room air GENERAL APPEARANCE: Propped up in bed. Cheerful. HEENT: Normal external appearance of nose and ear. Oral cavity normal EYES: Pupils equal. Conjunctiva pale. NECK: JVD not raised. Mass not palpable. RESPIRATORY: Respiratory effort normal. Lungs clear to auscultation. CARDIOVASCULAR: First and second sounds normal. Edema present. ABDOMEN: Soft. Liver and spleen not palpable. No tenderness. No mass palpable. PSYCHIATRY: Alert and oriented x3. Mood and affect normal. DERMATOLOGICAL: Wound on the left lambert. 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 Patient will be going to the inpatient rehab when bed is available. Discharge planning in place. -
[2019-01-20 06:28] VITALS: BP 110/68; PULSE 89; TEMP 97.2
[2019-01-20] MEDS: RIFAXIMIN 200 MG TAB PO SCH (08:31)
[2019-01-20] MEDS: NAPROXEN 250 MG TAB PO SCH ×2 (08:31→11:09)
[2019-01-20] MEDS: THIAMINE 100 MG TAB PO SCH (08:31)
[2019-01-20] MEDS: SPIRONOLACTONE 25 MG TAB PO SCH (08:31)
[2019-01-20] MEDS: FOLIC ACID 1 MG TAB PO SCH (08:31)
[2019-01-20] MEDS: MULTIVITAMINS, THERA 1 EACH TAB PO SCH (08:31)
[2019-01-20] MEDS: GABAPENTIN 100 MG CAP PO SCH (08:32)
[2019-01-20] MEDS: PANTOPRAZOLE 40 MG TABLET PO SCH (08:32)
[2019-01-20] MEDS: LACTULOSE 20 GM/30 ML CUP PO SCH (08:32)
[2019-01-20 08:52] VITALS: RESP 16
--- NOTE | 2019-01-20 13:00 | P.DS ---
Providers Date of admission: 01/13/19 23:13 Expected date of discharge: 01/20/19 Attending physician: David Harris Consults: 01/14/19 09:30 Consult Physician Routine Consulting Provider: Thelma Keller Consult Reason/Comments: wounds to left lower ext. Do you want consulting provider notified?: Yes Primary care physician: [facility] Course: : This patient with known history of alcoholic cirrhosis stopped drinking a while ago. Brought in because was found unresponsive was found to have hemoglobin of 6.6. Also found to have lactic acidosis. Patient also has lower extremity leg ulcers patient had been bumped against a bench. Also had low blood pressure on presentation. Also on list for hepatic transplant. Being followed by Dr. Keller from [facility]. Also status post 3 L of paracentesis. On antibiotics. Did receive 2 units of blood. Seen by Dr. Kim from GI. Not felt to be GI bleed felt to be multifactorial. Patient has been rather weak. Hence will be going for inpatient rehab. Today-sitting up. Tolerating a diet. Comfortable. Consultation: Dr. Nam from ID Dr. Kim from GI On examination: VITAL SIGNS: 97.2, 89, 14, 110/68, 97% room air GENERAL APPEARANCE: Propped up in bed. Comfortable. HEENT: Normal external appearance of nose and ear. Oral cavity normal EYES: Pupils equal. Conjunctiva pale. NECK: JVD not raised. Mass not palpable. RESPIRATORY: Respiratory effort normal. Lungs clear to auscultation. CARDIOVASCULAR: First and second sounds normal. Edema present. ABDOMEN: Soft. Liver and spleen not palpable. No tenderness. No mass palpable. PSYCHIATRY: Alert and oriented x3. Mood and affect normal. DERMATOLOGICAL: Wound on the left lambert. 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 -hyper- bilirubinemia secondary to cirrhosis -Medical debility multifactorial including that from cirrhosis and anemia -Hypoalbuminemia secondary to his cirrhosis -DO NOT RESUSCITATE -Disposition: [facility] Patient Condition at Discharge: Stable Plan - Discharge Summary New Discharge Prescriptions: No Action Folic Acid 1 mg PO DAILY #30 tablet Citalopram Hydrobromide [CeleXA] 20 mg PO DAILY Raloxifene [Evista] 60 mg PO DAILY Spironolactone 100 mg PO BID Gabapentin [Neurontin] 300 mg PO TID Discharge Medication List Folic Acid 1 mg PO DAILY #30 tablet 01/02/16 [Rx] Citalopram Hydrobromide [CeleXA] 20 mg PO DAILY 01/09/16 [History] Gabapentin [Neurontin] 300 mg PO TID 01/14/19 [History] Raloxifene [Evista] 60 mg PO DAILY 01/14/19 [History] Spironolactone 100 mg PO BID 01/14/19 [History] Follow up Appointment(s)/Referral(s): Christiano Miner, [NON-STAFF] - 1 Week Gabriel Valadez DO [Primary Care Provider] - 1-2 days [facility] Nurse, [NON-STAFF] - Patient Instructions/Handouts: Urinary Tract Infection in Women (GEN), Anemia (DC) Activity/Diet/Wound Care/Special Instructions: Cardiac diet. 2000 mg Na. Up with assist, fall precautions. L lambert wound cellulitis with wound,kerlix dressing daily and as needed. DNR code status.
--- NOTE | 2019-01-20 13:13 | PN ---
PROGRESS NOTE DATE OF SERVICE: 01/20/2019 REASON FOR FOLLOWUP: Left leg wound cellulitis and possible UTI. INTERVAL HISTORY: The patient is currently afebrile. Patient has been breathing comfortably. Denies having any chest pain or any cough. No nausea, vomiting. No abdominal pain or pain to the left leg area. PHYSICAL EXAMINATION: On examination, blood pressure 110/68 with a pulse of 89, temperature is 97.2. She is 97% on room air. General description is an elderly female lying in bed in no distress. RESPIRATORY SYSTEM: Unlabored breathing, clear to auscultation anteriorly. HEART: S1, S2. Regular rate and rhythm. ABDOMEN: Soft, no tenderness. Left leg wound is currently covered with scab, surrounding redness has improved. LABS: No new labs have been obtained today. The paracentesis fluid culture and cultures have been negative. DIAGNOSTIC IMPRESSION AND PLAN: Patient admitted to the hospital with a fever with initial concern for left leg wound with cellulitis, also with urinary tract infection and concern for . However, all her cultures have been negative. The patient's fever responded to Rocephin. Will give a short course of oral Ceftin on discharge and close outpatient followup. MMODL / IJN: [id number] /
== END 2019-01-20 13:59 | DRG 433 ==
LOC: EC 20:35 → 3SCARD 23:13 → 4MS4W 01-18 18:27
PROVIDERS: ADMIT Hospitalist; ATTEND Hospitalist
PROC: 0W9G3ZZ Drainage of Peritoneal Cavity, Percutaneous Approach (ICD-10-PCS; principal; 2019-01-15)
DX: K70.31 Alcoholic cirrhosis of liver with ascites (principal); E87.2 Acidosis; L03.116 Cellulitis of left lower limb; L97.929 Non-pressure chronic ulcer of unspecified part of left lower leg with unspecified severity; I87.8 Other specified disorders of veins; I83.009 Varicose veins of unspecified lower extremity with ulcer of unspecified site; D50.9 Iron deficiency anemia, unspecified; E87.6 Hypokalemia; E88.09 Other disorders of plasma-protein metabolism, not elsewhere classified; F10.11 Alcohol abuse, in remission; G62.9 Polyneuropathy, unspecified; Z87.19 Personal history of other diseases of the digestive system; N19 Unspecified kidney failure; Z66 Do not resuscitate; Z79.899 Other long term (current) drug therapy; Z82.49 Family history of ischemic heart disease and other diseases of the circulatory system; Z87.891 Personal history of nicotine dependence; E80.6 Other disorders of bilirubin metabolism
CPT/HCPCS: 36415; 49083; 71046; 76705; 80048; 80053; 80202; 81001; 82042; 82140; 82272; 82550; 82565; 83605; 84132; 84484; 85025; 85027; 85610; 85730; 86850; 86900; 86901; 86920; 87040; 87070; 87075; 87086; 87205; 89050; 93005; 96361; 96365; 96368; 99291